=== PATIENT | female | born 1970 | race Caucasian/White ===

== ENCOUNTER 2016-08-24 06:49 | Inpatient (IN) ==
[2016-08-24] MEDS: Ipratropium/Albuterol Neb 3 ML ONE ×3 (06:58→07:22)
[2016-08-24] MEDS ORDERED: *HR* FentaNYL (PF) 100 MCG/2 ML VIAL IVP ONE ×2 (07:06→08:30)
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
[2016-08-24] MEDS ORDERED: Ipratropium/Albuterol Neb 3 ML ONE (07:20)
[2016-08-24 07:37] LABS: BUN/Creatinine Ratio 7 (6-26); Basophils # 0.1 K/mcL (0.0-0.2); Basophils % 2.4 %; Calcium 8.6 mg/dL (8.6-10.8); Carbon Dioxide 24 mEq/L (19-29); Chloride 111 mEq/L (98-109); Eosinophils % 20.9 %; Glucose 122 mg/dL (70-99); Hematocrit 37.4 % (35.3-44.9); Lymphocytes % 39.6 %; Mean Corpuscular HGB Conc 29.4 g/dL (31.6-35.5); Mean Corpuscular Hemoglobin 22.1 pg (28.0-33.3); Mean Corpuscular Volume 75.1 fL (83.0-100.0); Monocytes # 0.5 K/mcL (0.0-1.3); Monocytes % 9.7 %; Neutrophils # 1.4 K/mcL (1.6-8.9); Osmolality,Calculated 293 (280-300); Platelet Count 142 K/mcL (140-400); Potassium 4.1 mEq/L (3.5-4.5); Red Blood Count 4.98 M/mcL (3.82-4.97); Red Cell Distribution Width 19.8 % (11.5-14.5); Segmented Neutrophils % 27.4 %; Sodium 142 mEq/L (136-145); eGFR For African Americans > 60 (> 60); eGFR For Non-African Americans > 60 (> 60)
[2016-08-24 07:38] LABS: Blood Urea Nitrogen 5 mg/dL (7-20)
[2016-08-24 07:54] LABS: Eosinophils # 1.1 K/mcL (0.0-0.6)
[2016-08-24] MEDS ORDERED: methylPREDNISolone 125 MG/2 ML VIAL IVP ONE (08:56)
[2016-08-24 09:15] LABS: Anisocytosis 1+ (Not Present); Platelet Estimate Normal (Normal); Poikilocytosis 1+ (Not Present)
[2016-08-24] MEDS ORDERED: Naloxone 0.4 MG/ML INJ IVP PRN (11:11)
[2016-08-24] MEDS ORDERED: Acetaminophen 325 MG TABLET PO PRN (11:11)
[2016-08-24] MEDS ORDERED: Ondansetron 4 MG/2 ML VIAL IVP PRN (11:11)
[2016-08-24] MEDS: Lactulose Oral Soln 20 GM/30 ML UDC PO SCH ×2 (12:06→20:59)
[2016-08-24] MEDS: *HR* LORazepam 1 MG TABLET PO PRN ×2 (12:07→19:49)
[2016-08-24] MEDS: *HR* OxyCODONE Immed Rel 5 MG TABLET PO PRN ×2 (12:07→17:53)
[2016-08-24] MEDS: Ipratropium/Albuterol Neb 3 ML IH SCH ×4 (12:15→23:31)
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
[2016-08-24] MEDS: *HR* Morphine 2 MG/ML SYRINGE IVP PRN ×2 (15:43→21:47)
[2016-08-24] MEDS: *HR* Enoxaparin 60 MG/0.6 ML SYRINGE SQ SCH (17:10)
[2016-08-24] MEDS: MethylPREDNISolone 40 MG/ML VIAL IVP SCH (17:10)
[2016-08-24] MEDS ORDERED: NON-FORMULARY MEDICATION 1 EACH EACH (Fluticasone Propionate [Flovent Hfa] 1 PUFF) IH SCH (21:00)
[2016-08-25] MEDS: MethylPREDNISolone 40 MG/ML VIAL IVP SCH ×4 (00:15→23:05)
[2016-08-25] MEDS: *HR* OxyCODONE Immed Rel 5 MG TABLET PO PRN ×4 (00:15→23:05)
[2016-08-25] MEDS: Ipratropium/Albuterol Neb 3 ML IH SCH ×5 (04:12→19:42)
[2016-08-25] MEDS: *HR* Morphine 2 MG/ML SYRINGE IVP PRN (05:18)
[2016-08-25] MEDS: *HR* Enoxaparin 60 MG/0.6 ML SYRINGE SQ SCH ×2 (05:59→17:52)
[2016-08-25] MEDS: *HR* LORazepam 1 MG TABLET PO PRN (06:07)
[2016-08-25 06:47] LABS: BUN/Creatinine Ratio 7 (6-26); Blood Urea Nitrogen 5 mg/dL (7-20); Calcium 8.5 mg/dL (8.6-10.8); Carbon Dioxide 22 mEq/L (19-29); Chloride 107 mEq/L (98-109); Glucose 160 mg/dL (70-99); Magnesium 1.7 mg/dL (1.6-2.6); Osmolality,Calculated 283 (280-300); Potassium 4.5 mEq/L (3.5-4.5); Sodium 136 mEq/L (136-145); eGFR For African Americans > 60 (> 60); eGFR For Non-African Americans > 60 (> 60)
[2016-08-25 07:56] LABS: Basophils % 0.1 %; Eosinophils % 0.1 %; Hematocrit 33.7 % (35.3-44.9); Hemoglobin 10.2 g/dL (11.5-15.4); Immature Granulocytes % 0.7 % (0-4); Immature Platelets 3.9 % (1.1-6.1); Lymphocytes # 0.6 K/mcL (0.6-4.6); Lymphocytes % 4.5 %; Mean Corpuscular HGB Conc 30.3 g/dL (31.6-35.5); Mean Corpuscular Hemoglobin 22.5 pg (28.0-33.3); Mean Corpuscular Volume 74.2 fL (83.0-100.0); Mean Platelet Volume 9.3 fL (9.4-12.4); Monocytes # 0.4 K/mcL (0.0-1.3); Monocytes % 2.9 %; Platelet Count 144 K/mcL (140-400); Red Blood Count 4.54 M/mcL (3.82-4.97); Red Cell Distribution Width 19.3 % (11.5-14.5); Segmented Neutrophils % 91.7 %
[2016-08-25 07:57] LABS: Neutrophils # 12.5 K/mcL (1.6-8.9)
[2016-08-25 08:46] LABS: Platelet Estimate Normal (Normal)
[2016-08-25 08:47] LABS: Anisocytosis 1+ (Not Present); Poikilocytosis 1+ (Not Present)
[2016-08-25] MEDS: Lactulose Oral Soln 20 GM/30 ML UDC PO SCH ×2 (08:52→20:10)
[2016-08-25] MEDS: Spironolactone 25 MG TABLET PO SCH (09:02)
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
[2016-08-25] MEDS: GuaiFENesin Liq 200 MG/10 ML UDC PO SCH ×3 (12:07→23:05)
[2016-08-25] MEDS: Azithromycin 250 MG TABLET PO SCH (12:08)
[2016-08-25 14:18] LABS: % Iron Saturation 4 % (15-50); Iron 17 mcg/dL (50-170); Transferrin 304 mg/dL (180-382)
[2016-08-25 14:38] LABS: Ferritin 13 ng/ml (5-204)
[2016-08-25] MEDS: tiZANidine 4 MG TABLET PO PRN (17:57)
[2016-08-25] MEDS: ALPRAZolam 0.25 MG TABLET PO PRN (20:10)
[2016-08-26] MEDS: Ipratropium/Albuterol Neb 3 ML IH SCH ×6 (00:27→20:46)
[2016-08-26 04:36] LABS: Basophils % 0.1 %; Mean Corpuscular Volume 73.8 fL (83.0-100.0)
[2016-08-26 04:38] LABS: Hematocrit 35.2 % (35.3-44.9); Hemoglobin 10.7 g/dL (11.5-15.4); Immature Granulocytes % 0.6 % (0-4); Lymphocytes # 0.9 K/mcL (0.6-4.6); Lymphocytes % 5.7 %; Mean Corpuscular HGB Conc 30.4 g/dL (31.6-35.5); Mean Corpuscular Hemoglobin 22.4 pg (28.0-33.3); Mean Platelet Volume 9.1 fL (9.4-12.4); Monocytes % 6.3 %; Neutrophils # 13.1 K/mcL (1.6-8.9); Platelet Count 155 K/mcL (140-400); Red Blood Count 4.77 M/mcL (3.82-4.97); Red Cell Distribution Width 19.9 % (11.5-14.5); Segmented Neutrophils % 87.3 %
[2016-08-26 05:01] LABS: Anisocytosis 1+ (Not Present)
[2016-08-26 05:02] LABS: Microcytosis Present (Not Present); Ovalocytes 1+ (Not Present); Poikilocytosis 1+ (Not Present)
[2016-08-26 05:03] LABS: Platelet Estimate Normal (Normal); Polychromasia 2+ (Not Present)
[2016-08-26] MEDS: ALPRAZolam 0.25 MG TABLET PO PRN (05:25)
[2016-08-26] MEDS: *HR* Enoxaparin 60 MG/0.6 ML SYRINGE SQ SCH (05:25)
[2016-08-26] MEDS: GuaiFENesin Liq 200 MG/10 ML UDC PO SCH ×3 (05:25→18:11)
[2016-08-26] MEDS: *HR* OxyCODONE Immed Rel 5 MG TABLET PO PRN ×3 (05:25→17:40)
[2016-08-26] MEDS: Azithromycin 250 MG TABLET PO SCH (09:19)
[2016-08-26] MEDS: Lactulose Oral Soln 20 GM/30 ML UDC PO SCH ×2 (09:19→22:20)
[2016-08-26] MEDS: MethylPREDNISolone 40 MG/ML VIAL IVP SCH ×2 (09:20→17:40)
[2016-08-26] MEDS: Spironolactone 25 MG TABLET PO SCH (09:20)
--- NOTE | 2016-08-26 10:12 | Electrocardiograph Report ---
[place] [id number] Test Date: 2016-08-24 Pat Name: Miya Sinha Department: 102 Room: 2N3 Gender: F Independent Driver: Landen : 1970 Requested By: Loraine Palomares Order Number: [id number] Reading MD: Juan Carlos Eubanks MD Measurements Intervals [place] Rate: 106 P: 80 MS: 148 QRS: 99 QRSD: 97 T: 93 QT: 369 QTc: 431 Interpretive Statements SINUS TACHYCARDIA RIGHT ATRIAL ENLARGEMENT BORDERLINE RIGHT AXIS DEVIATION BASELINE ARTIFACT COMPLICATES ACCURATE INTERPRETATION Electronically Signed On 08-26-2016 10:10:15 EDT by Juan Carlos Eubanks MD
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
[2016-08-27] MEDS: Ipratropium/Albuterol Neb 3 ML IH SCH ×7 (00:23→23:02)
[2016-08-27] MEDS: MethylPREDNISolone 40 MG/ML VIAL IVP SCH ×2 (01:20→10:13)
[2016-08-27] MEDS: GuaiFENesin Liq 200 MG/10 ML UDC PO SCH ×5 (01:20→23:12)
[2016-08-27] MEDS: *HR* Enoxaparin 40 MG/0.4 ML SYRINGE SQ SCH (06:30)
[2016-08-27 09:22] LABS: Basophils % 0.1 %; Hematocrit 34.7 % (35.3-44.9); Hemoglobin 10.4 g/dL (11.5-15.4); Immature Granulocytes % 0.6 % (0-4); Lymphocytes # 0.8 K/mcL (0.6-4.6); Lymphocytes % 11.1 %; Mean Corpuscular Hemoglobin 22.3 pg (28.0-33.3); Mean Corpuscular Volume 74.3 fL (83.0-100.0); Mean Platelet Volume 9.8 fL (9.4-12.4); Monocytes # 0.8 K/mcL (0.0-1.3); Monocytes % 11.5 %; Neutrophils # 5.5 K/mcL (1.6-8.9); Platelet Count 133 K/mcL (140-400); Red Blood Count 4.67 M/mcL (3.82-4.97); Red Cell Distribution Width 19.9 % (11.5-14.5); Segmented Neutrophils % 76.7 %
--- NOTE | 2016-08-27 09:34 | Venous Imaging Report ---
LE Venous Duplex Patient Name:Miya Sinha Order Number:[id number] Procedure Date:08/25/2016 Date:1970Age:45 yrs Gender:Female Location:[facility] Room #: [id number] Bobbin Handler:Burak Stephenson CHENTE Referring MD:Barb Seth MD media sales consultant:None Reading MD:Husam Richmond MD Primary Indications:History of left calf DVT, stopped medication Secondary Indications: Risk Factors Yes/No Anticoagulants Yes Hx of DVT Yes Impressions: Normal left lower extremity deep and superficial venous exam. Normal contralateral common femoral vein. Recommendations: After imaging the patient returned to their room. Findings Venous Duplex Results: Right: Venous imaging of the lower extremity reveals full patency and normal vessel compressibility of the right common femoral. Doppler signals in the evaluated veins were normal. Left: Venous imaging of the lower extremity reveals full patency and normal vessel compressibility of the left distal iliac, left common femoral, left superficial femoral, left popliteal, left posterior tibial, left peroneal, left great saphenous and left lesser saphenous. Doppler signals in the evaluated veins were normal. Prior Study: No prior study available for comparison. Lower Extremity Venous Duplex Side Vein Compress Spontaneous Flow Augment Diameter (cm) Depth (cm) Left Distal Iliac Normal Yes Phasic Yes Left Common Femoral Normal Yes Phasic Yes Left Superficial Femoral Normal Yes Phasic Yes Left Popliteal Normal Yes Phasic Yes Left Posterior Tibial Normal Yes Phasic Yes Left Peroneal Normal Yes Phasic Yes Left Great Saphenous Normal Yes Phasic Yes Left Lesser Saphenous Normal Yes Phasic Yes Right Common Femoral Normal Yes Phasic Yes Updated by Husam Richmond MD on 08/27/2016 9:28:32 AM electronically signed on 08/27/2016 9:28:46 AM with status of Final
[2016-08-27 10:07] LABS: BUN/Creatinine Ratio 13 (6-26); Blood Urea Nitrogen 8 mg/dL (7-20); Calcium 8.6 mg/dL (8.6-10.8); Carbon Dioxide 25 mEq/L (19-29); Chloride 110 mEq/L (98-109); Glucose 178 mg/dL (70-99); Magnesium 1.7 mg/dL (1.6-2.6); Osmolality,Calculated 289 (280-300); Phosphorous 3.2 mg/dL (2.3-4.7); Sodium 138 mEq/L (136-145); eGFR For African Americans > 60 (> 60); eGFR For Non-African Americans > 60 (> 60)
[2016-08-27] MEDS: Spironolactone 25 MG TABLET PO SCH (10:11)
[2016-08-27] MEDS: *HR* OxyCODONE Immed Rel 5 MG TABLET PO PRN ×2 (10:11→16:06)
[2016-08-27] MEDS: Azithromycin 250 MG TABLET PO SCH (10:12)
[2016-08-27] MEDS: Lactulose Oral Soln 20 GM/30 ML UDC PO SCH ×2 (10:12→23:11)
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
[2016-08-27] MEDS ORDERED: Ondansetron ODT 4 MG TAB.RAPDIS PO PRN (10:40)
[2016-08-27] MEDS: ALPRAZolam 0.25 MG TABLET PO PRN (16:06)
[2016-08-27] MEDS: tiZANidine 4 MG TABLET PO PRN (16:06)
[2016-08-27] MEDS ORDERED: MethylPREDNISolone 40 MG/ML VIAL IVP SCH (22:00)
[2016-08-28] MEDS: Ipratropium/Albuterol Neb 3 ML IH SCH ×3 (03:03→11:19)
[2016-08-28] MEDS: *HR* Enoxaparin 40 MG/0.4 ML SYRINGE SQ SCH (06:07)
[2016-08-28] MEDS: GuaiFENesin Liq 200 MG/10 ML UDC PO SCH ×2 (06:07→11:41)
[2016-08-28] MEDS: *HR* OxyCODONE Immed Rel 5 MG TABLET PO PRN ×2 (06:34→11:41)
[2016-08-28] MEDS: ALPRAZolam 0.25 MG TABLET PO PRN (06:34)
[2016-08-28 06:42] LABS: Hemoglobin A1C 5.6 %
[2016-08-28 06:54] LABS: Basophils % 0.2 %; Eosinophils # 0.2 K/mcL (0.0-0.6); Eosinophils % 3.2 %; Hematocrit 35.5 % (35.3-44.9); Hemoglobin 10.7 g/dL (11.5-15.4); Immature Granulocytes % 0.3 % (0-4); Lymphocytes # 1.9 K/mcL (0.6-4.6); Lymphocytes % 31.4 %; Mean Corpuscular HGB Conc 30.1 g/dL (31.6-35.5); Mean Corpuscular Hemoglobin 22.4 pg (28.0-33.3); Mean Corpuscular Volume 74.3 fL (83.0-100.0); Mean Platelet Volume 9.6 fL (9.4-12.4); Monocytes # 0.9 K/mcL (0.0-1.3); Monocytes % 14.2 %; Neutrophils # 3.1 K/mcL (1.6-8.9); Platelet Count 118 K/mcL (140-400); Red Blood Count 4.78 M/mcL (3.82-4.97); Red Cell Distribution Width 19.9 % (11.5-14.5); Segmented Neutrophils % 50.7 %
[2016-08-28 06:57] LABS: BUN/Creatinine Ratio 12 (6-26); Blood Urea Nitrogen 8 mg/dL (7-20); Calcium 8.3 mg/dL (8.6-10.8); Carbon Dioxide 24 mEq/L (19-29); Chloride 111 mEq/L (98-109); Glucose 125 mg/dL (70-99); Magnesium 1.5 mg/dL (1.6-2.6); Osmolality,Calculated 292 (280-300); Phosphorous 2.8 mg/dL (2.3-4.7); Potassium 3.1 mEq/L (3.5-4.5); Sodium 141 mEq/L (136-145); eGFR For African Americans > 60 (> 60); eGFR For Non-African Americans > 60 (> 60)
[2016-08-28 07:26] VITALS: BP 101/67
[2016-08-28] MEDS ORDERED: Magnesium Sulfate 1 GM in D5% in Water 100 ML IVPB ONE (08:11)
[2016-08-28] MEDS: Spironolactone 25 MG TABLET PO SCH (08:17)
[2016-08-28] MEDS: Azithromycin 250 MG TABLET PO SCH (08:18)
[2016-08-28] MEDS: Lactulose Oral Soln 20 GM/30 ML UDC PO SCH (08:22)
[2016-08-28] MEDS ORDERED: Magnesium Oxide 400 MG TABLET PO ONE (08:30)
[2016-08-28] MEDS ORDERED: Cyanocobalamin (B-12) 1,000 MCG TABLET PO SCH (09:00)
[2016-08-28] MEDS ORDERED: predniSONE 20 MG TABLET PO SCH (09:00)
[2016-08-28] MEDS ORDERED: Fluconazole 100 MG TABLET PO SCH (09:00)
[2016-08-28] MEDS ORDERED: NON-FORMULARY MEDICATION 1 EACH EACH (Pantoprazole Sodium [Protonix] 40 MG) PO SCH (09:00)
--- NOTE | 2016-08-28 09:47 | Discharge Summary ---
Date of Encounter: 08/28/16 Time of Encounter: 08:45 - Discharge Diagnosis (1) Acute exacerbation of chronic obstructive airways disease Priority: Primary Status: Acute (2) Alcoholic cirrhosis of liver without ascites Priority: Secondary Status: Chronic (3) DVT prophylaxis Priority: Secondary Status: Acute (4) Tobacco abuse Priority: Secondary Status: Chronic - Discharge Medications Prescriptions: Albuterol Sulfate [Proair Hfa] 2 puff IH Q4HR #1 ALPRAZolam [Xanax 0.25 MG Tablet] 0.25 mg PO TID PRN #20 tab PRN Reason: Anxiety Azithromycin [Zithromax] 500 mg PO DAILY #1 tab Lactulose 15 ml PO BID #30 Potassium Chloride [K-Tab ER] 10 meq PO DAILY #15 predniSONE [PredniSONE] 40 mg PO DAILY #6 tab Spironolactone [Aldactone] 25 mg PO DAILY #15 Tiotropium [Spiriva] 1 cap IH DAILY #1 Home Medications: Cyanocobalamin (Vitamin B-12) [Vitamin B12] 2,500 mcg SL DAILY 03/28/15 [History ] Promethazine HCl [Phenergan] 25 mg PO BID PRN 03/28/15 [History] Zolpidem [Ambien] 5 mg PO HS 03/28/15 [History] Tizanidine HCl [Zanaflex] 4 mg PO QID PRN #6 cap 08/27/15 [Rx] ALPRAZolam [Xanax 0.5 MG Tablet] 0.25 mg PO TID PRN 08/24/16 [History] Calcium Carbonate/Vitamin D3 [Calcium 500-Vit D3 200 Tablet] 1 tab PO DAILY [History] Fluconazole [Diflucan] 200 mg PO DAILY 08/24/16 [History] Fluticasone Propionate [Flovent Hfa] 2 puff IH DAILY 08/24/16 [History] Ipratropium/Albuterol Neb [Duoneb] 3 ml IH Q4HR 08/24/16 [History] Midodrine [ProAmatine] 5 mg PO 0800,1200,1700 08/24/16 [History] Ondansetron [Zuplenz] 4 mg PO Q6H PRN 08/24/16 [History] OxyCODONE Immed Rel [Roxicodone 5 MG] 5 mg PO Q6HR PRN 08/24/16 [History] Oxygen 3 l NS CONT 08/24/16 [History] Pantoprazole Sodium [Protonix] 40 mg PO DAILY 08/24/16 [History] Vitamin E (Dl,Tocopheryl Acet) [Vitamin E] 400 unit PO DAILY 08/24/16 [History] ALPRAZolam [Xanax 0.25 MG Tablet] 0.25 mg PO TID PRN #20 tab 08/28/16 [Rx] Albuterol Sulfate [Proair Hfa] 2 puff IH Q4HR #1 08/28/16 [Rx] Azithromycin [Zithromax] 500 mg PO DAILY #1 tab 08/28/16 [Rx] Lactulose 15 ml PO BID #30 08/28/16 [Rx] Potassium Chloride [K-Tab ER] 10 meq PO DAILY #15 08/28/16 [Rx] Spironolactone [Aldactone] 25 mg PO DAILY #15 08/28/16 [Rx] Tiotropium [Spiriva] 1 cap IH DAILY #1 08/28/16 [Rx] predniSONE [PredniSONE] 40 mg PO DAILY #6 tab 08/28/16 [Rx] Allergies/Adverse Reactions: Allergies diphenhydramine [From Benadryl] Allergy (Verified 08/24/16 06:50) Agitated ketorolac [From Toradol] Allergy (Verified 08/24/16 06:50) Difficulty Breathing NSAIDS (Non-Steroidal Anti-Inflamma Allergy (Verified 08/24/16 06:50) Difficulty Breathing prochlorperazine [From Compazine] Allergy (Verified 08/24/16 06:50) Agitated sertraline Allergy (Verified 08/24/16 06:50) Itching tramadol Allergy (Verified 08/24/16 06:50) Difficulty Breathing Procedures/tests Complete & Pending: Procedures Performed prior 72 hours Category Date Time Status EV venous imaging LE LT Routine Y 08/25/16 11:15 Completed Date of admission: 08/24/16 11:11 Primary care physician: PCP NO Discharging clinician: Jami Lopez Anticipated date of discharge: 08/28/16 - Patient Status Disposition: Home, Self-Care Condition: Good Functional capacity at discharge: independent ambulation Overall status at discharge: patient is back to baseline - Discharge Instructions Follow Up With: Lalitha Alvarez DO [Resident] - 09/17/16 9:00 am Additional Instructions: Please follow up with your primary care physician within five days after your discharge from the hospital. Please continue to take Prednisone once a day for 6 days. Please take Azithromycin for one more day. Please resume all your home medications as prescribed by your primary care physician. Smoking cessation is highly advised. - Diet and Activity Activity: increase activity as tolerated Diet: low salt diet Hospital course: Ms. Sinha is a 45 year old female with PMH Of COPD, anxiety, cirrhosis, DVT of LLE (noncompliant with medication and does not want to continue) who was admitted for management of COPD exacerbation. Patient was started on IV steroids , O2 supplementation, and bronchodilator support to which she responded appropriately. Pt reported of not being on any home oxygen prior to her arrival to the ER and during this hospitalization, her respiratory status improved with systemic steroids. She underwent O2 qualification testing and did not qualify for home oxygen therapy. She has history of noncompliance, tobacco abuse and remained hostile towards the medical staff throughout the course of her admission, and wanted to sign out against medical advice numerous times. At this time she is saturating well on room air and hemodynamically stable. She reports of having found a PCP near her house and wishes to follow with them there. She is extremely anxious and wants to leave the hospital immediately. She is requesting refills of some of her home medications prior to her discharge. She will be discharged to home with follow up with PCP. Patient demonstrates understanding of her diagnosis and agrees with the discharge care and plan. - Time Spent with Patient Total time spent providing and/or coordinating discharge services: Greater than 30 minutes - Constitutional Vitals: Temp Pulse Resp BP Pulse Ox 97.4 F L 76 18 101/67 97 08/28/16 07:25 08/28/16 07:25 08/28/16 07:25 08/28/16 07:25 08/28/16 09:31 General appearance: Present: A&O X 3, no acute distress, answers questions appropriately - Head Head exam: Present: atraumatic, normocephalic - Eye Eye exam: Present: conjuntiva pink, sclera anicteric - Respiratory Respiratory exam: Present: CTAB. Absent: respiratory distress, wheezes - Cardiovascular Cardiovascular exam: Present: RRR, +S1, +S2. Absent: diastolic murmur, gallop, rubs, systolic murmur - GI/Abdominal GI/Abdominal exam: Present: normal bowel sounds, soft, no peritoneal signs. Absent: distended, tenderness - Extremities Exam Extremities exam: Present: warm, radial pulses palpable and symetrical. Absent : calf tenderness, pedal edema - Neurological Exam Neurological exam: Present: alert, oriented X3 - Psychiatric Psychiatric exam: Present: anxious
== END 2016-08-28 11:55 | disposition home or self-care (01) | DRG 140 ==
LOC: EMEROO 06:49 → 2NENU 06:49 → SUATTDRO 11:11 → 3ANU 08-27 11:42
PROVIDERS: ADMIT Internal Medicine; ATTEND Internal Medicine